=== PATIENT | female | born 1965 | race Caucasian/White ===

== ENCOUNTER 2023-06-06 08:45 | Observation (INO) ==
[~2023-06-06 08:45] MED LIST: Buffered Lidocaine 1% SYRIN 1 ml INTRADERM ONE; Famotidine IV 10 MG/ML 2 ml VIAL (20 mg) IV ONE; Lactated Ringers 1000 ml BAG 1,000 ML IV SCH
[2023-06-06] MEDS ORDERED: Tranexamic Acid 1 GM/100ML BAG 2,000 MG/200 ML BAG IV ONE (12:08)
[2023-06-06] MEDS ORDERED: ceFAZolin 2 GM PREMIX 2 GM/50 ML BAG ONE (12:08)
[2023-06-06] MEDS ORDERED: Famotidine IV 10 MG/ML 2 ml VIAL (20 mg) ONE (12:09)
[2023-06-06 12:34] LABS: Rapid COVID-19 Molecular Undetected (Undetected)
[2023-06-06] MEDS ORDERED: fentaNYL 100 mcg/2 ml 50 MCG/ML VIAL ONE ×2 (13:35→14:18)
[2023-06-06] MEDS ORDERED: Midazolam 2 mg/2 ml VIAL 1 mg/ml 2 ml VIAL (2 mg) ONE ×3 (13:35→15:08)
[2023-06-06] MEDS ORDERED: Lidocaine 2% PF 5 ML VIAL ONE (13:36)
[2023-06-06] MEDS ORDERED: Propofol 10 MG/ML 20 ML BTL ONE ×6 (13:36→17:12)
[2023-06-06] MEDS ORDERED: Dexamethasone IV 4 MG/ML VIAL 1 ml VIAL ONE (13:36)
[2023-06-06] MEDS ORDERED: Rocuronium 50 mg VIAL 10 mg/ml 5 ml VIAL (50 mg) ONE (13:36)
[2023-06-06] MEDS ORDERED: Glycopyrrolate IV 0.2 MG/ML 1 ML VIAL ONE (13:36)
[2023-06-06] MEDS ORDERED: Ondansetron 4 mg VIAL 2 MG/ML 2 ml VIAL ONE ×2 (13:36→18:41)
[2023-06-06] MEDS ORDERED: fentaNYL 250 mcg/5 ml 50 MCG/ML 5 ml VIAL (250 MCG) ONE (14:16)
[2023-06-06] MEDS ORDERED: ROPIVACAINE 5 MG/ML 30 ML BTL (0.5%) ONE (14:16)
[2023-06-06] MEDS ORDERED: Bupivacaine-MPF SPINAL 7.5 MG/ML - 2ML AMP ONE (14:37)
[2023-06-06] MEDS ORDERED: Ropivacaine 5 MG/ML 20 ML VIAL 0.5% (100 MG) ONE (14:48)
[2023-06-06] MEDS ORDERED: Ondansetron ODT 4 mg TAB 4 MG TAB PO PRN (16:16)
[2023-06-06] MEDS ORDERED: Magnesium Hydroxide LIQ 30 ML UDC PO PRN (16:16)
[2023-06-06] MEDS ORDERED: Lactulose 30 ml UDC PO PRN (16:16)
[2023-06-06] MEDS ORDERED: Morphine 2 MG/ML SYRINGE IV PRN (16:16)
[2023-06-06] MEDS ORDERED: fentaNYL 100 mcg/2 ml 50 MCG/ML VIAL IV PRN (16:33)
[2023-06-06] MEDS ORDERED: HYDROmorphone 1 MG/1 ML SYRINGE IV PRN (16:33)
[2023-06-06] MEDS ORDERED: Scopolamine 1 mg/72hr PATCH TRANSDERM PRN (16:33)
[2023-06-06] MEDS ORDERED: Naloxone 0.4 mg VIAL 0.4 mg/ml 1 ml VIAL IV PRN (16:33)
[2023-06-06] MEDS ORDERED: Lactated Ringers 1000 ml BAG 1,000 ML IV SCH (17:00)
[2023-06-06] MEDS: Ondansetron 4 mg VIAL 2 MG/ML 2 ml VIAL IV PRN (18:43)
[2023-06-06] MEDS ORDERED: Scopolamine 1 mg/72hr PATCH ONE (18:48)
[2023-06-06] MEDS ORDERED: Eszopiclone 3 mg TAB (NF) PO SCH (21:00)
[2023-06-06] MEDS: Magnesium Hydroxide LIQ 30 ML UDC PO SCH (22:05)
[2023-06-06] MEDS: ceFAZolin 1 GM ADVAN 1 GM in NS 0.9% 50 ML 50 ML IVPB SCH (22:52)
[2023-06-07] MEDS: Ondansetron 4 mg VIAL 2 MG/ML 2 ml VIAL IV PRN (05:55)
[2023-06-07] MEDS: ceFAZolin 1 GM ADVAN 1 GM in NS 0.9% 50 ML 50 ML IVPB SCH ×2 (07:14→14:41)
[2023-06-07 08:09] LABS: Platelet Count 224 10^3/uL (150-450)
[2023-06-07 08:28] LABS: Calcium 8.6 mg/dL (8.6-10.3); Creatinine, Serum 0.93 mg/dL (0.51-0.95); Potassium 4.2 mmol/L (3.5-5.0); eGFR CKD-EPI 70.4 (>60)
[2023-06-07 08:55] LABS: Hematocrit 34.1 % (35-45); Hemoglobin 11.7 g/dL (11.5-14.3); Mean Platelet Volume 8.5 fL (7.5-11.2)
[2023-06-07] MEDS: Magnesium Hydroxide LIQ 30 ML UDC PO SCH (08:59)
[2023-06-07] MEDS ORDERED: Vitamin THERAPEUTIC TAB PO SCH (09:00)
[2023-06-07 14:47] VITALS: BP 103/67
[2023-06-08] MEDS ORDERED: PROGESTERONE 100 MG PO SCH (09:00)
== END 2023-06-07 13:30 | disposition home or self-care (01) ==
LOC: INTOOBSV 11:29 → AA 11:29 → SSU 19:40
PROVIDERS: ADMIT Orthopaedic Surgery Adult Reconstructive Orthopaedic Surgery; ATTEND Orthopaedic Surgery Adult Reconstructive Orthopaedic Surgery